=== PATIENT | male | born 1965 | race Caucasian/White ===

== ENCOUNTER → 2016-11-13 | Outpatient (CLI) | payer BC ==
[2016-11-13 11:22] VITALS: BP 119/80
--- NOTE | 2016-11-13 11:22 | Urgent Care T Sheet Gen (E) ---
Intake General Temperature (Fahrenheit): 97.3 Pulse: 84 Blood Pressure Systolic: 119 Blood Pressure Diastolic: 80 Respirations: 18 SPO2: 96 Description of Symptoms patient presents with "plugged up ears", L worse than R. Has a history of cerumen impaction requiring irrigation. Used a home kit last night without improvement. History of Present Illness Allergies: Coded Allergies: No Known Drug Allergies (Unverified , 09/25/13) Respiratory Constitutional Symptoms: No syptoms reported EENTM: Ear pain All Other Systems Reviewed Remaining Systems: All other systems reviewed with negative findings Past Ugiixxs-Regobs-Bmdgcm Hx Surgeries/Hospitalizations Hospitalization/Surgery Hx: Tonsillectomy orchiectomy Respiratory Respiratory History: None Cardiovascular Cardiovascular History: None Neuro/Muscular Neuro/Muscular History: Visual impairment, None Reproductive System Sexually Transmitted Diseases: No Genitouinary Genitourinary History: None Gastrointestinal GI/Endocrine History: Blood in stools Diabetes Diabetes: No Integumentary Integumentary History: None Cancer History of Cancer?: No Cancer type: none Physical Exam Physical Exam General Appearance: WD/WN No apparent distress Eyes, Ears, Nose, Throat Ex: TMs normal (once cerumen was removed, both TMs were visualized a normal) Procedures/Interventions Ear Procedure : Location: Both ears Foreign Body Removed: Impacted Cerumen Instrument used for removal: Irrigation Progress/Procedure Conclusion Irrigation was used to remove bilateral cerumen impactions. Patient has very long and narrow external ear canals which makes impactions very easy. Patient tolerated the procedure and noted immediate improvement. Departure Urgent Care Impression Impression: Primary Impression: Impacted cerumen of both ears Departure Disposition: 01 HOME OR SELF-CARE Condition: Stable Referrals: LUCIA GOODWIN MD (PCP) Additional Instructions: Immediate relief with cerumen removal Return as needed Patient understands DC instructions. All questions were answered. End of report . CLAUDIA COLVIN Nov 13, 2016 11:22
== END ==
LOC: MHUC 10:30
PROVIDERS: ATTEND Physician Assistant
DX: H61.23 Impacted cerumen, bilateral (principal)
CPT/HCPCS: 99213